=== PATIENT | male | born 1950 | race Caucasian/White ===

== ENCOUNTER 2017-03-01 16:47 | Emergency (ER) | payer OTHER ==
--- NOTE | 2017-03-01 18:51 | DIAGNOSTIC IMAGING REPORT ---
PROCEDURE: US VENOUS - LEFT EXT INDICATION: Left arm swelling. Status post abscess drainage of antecubital region. TECHNIQUE: Color Doppler duplex imaging of the deep and superficial venous system without and with compression. COMPARISON: None. FINDINGS: There is moderate to marked subcutaneous edema of the left arm. Deep and superficial venous system of the left upper extremity is within normal limits. There is no evidence of deep vein thrombosis or superficial thrombophlebitis. IMPRESSION: 1. Moderate to marked edema of the left arm. 2. Negative venous ultrasound of the left upper extremity. 3. Findings discussed with Dr. Garfield Mancini.
--- NOTE | 2017-03-01 18:54 | ED ORDER SUMMARY ---
..... Patient: VARUN URIBE OrderSheet [facility] VisitID: [id number] [place] [address] 66y, M Registration Date/Time: 03/01/2017 ORDER SHEET Weight: 81.6 kg (stated) Allergies: Methadone GENERAL ORDERS: US Venous Left Urgent (17:11 03/01/2017 Blaze Vee) (Ack 17:16 Laura) (18:16 KKnebel R.N.) CBC w Diff Urgent (17:11 03/01/2017 Blaze Vee) (Ack 17:16 Laura) (18:10 KKnebel R.N.) (Cancelled: Patient Msxcjuo24:10 AMBROSEneagueda R.N.) CMP Urgent (17:11 03/01/2017 Blaze Vee) (Ack 17:16 Laura) (18:10 Karl R.N.) CPK Urgent (17:11 03/01/2017 Blzae Vee) (Ack 17:16 Laura) (18:10 Karl R.N.) Pulse oximeter (17:11 03/01/2017 Blaze Vee) (18:11 KKnebel R.N.) MEDICATION ORDERS: Morphine IM 8 mg (HIGH ALERT MEDICATION, NOW) (18:11 03/01/2017Yun Thakur Dr.) (18:17 KKnebel R.N.) IV FLUIDS: IV Saline Lock (17:11 03/01/2017 Blaze Vee) (18:11 AMBROSEnebel R.N.) ORDER SHEET NOTES: [Electronically signed by Judi Smith R.N. (19:39 03/01/2017)] [Electronically signed by Garfield Mancini Dr. (12:24 03/03/2017)] [Electronically locked/signed by Judi Smith R.N. (19:39 03/01/2017)]
--- NOTE | 2017-03-01 18:54 | ED NURSING NOTES ---
Clinical Report - Nurses [facility] [address] [place] [address] 03/01/2017 16:47 Patient: VARUN URIBE TRIAGE Triage time 16:53 Mar 01 2017. Acuity: LEVEL 3. Chief Complaint: LEFT UPPER EXTREMITY PAIN, SWELLING and REDNESS. Alert. No acute distress. SEPSIS SCREEN: Sepsis Screen: negative. Infection suspected/documented. Temperature not greater than 38.3 degrees C (101 degrees F). Heart rate not greater than 90. Respiratory rate not greater than 20. LISA COMA SCORE: [place] Coma Scale: 15- eyes open spontaneously (4); best verbal response- oriented x 4 (5); best motor response- obeys commands (6). --17:04 Judi Smith R.N. 16:53 03/01/17. BP: 141/63. HR: 87. RR: 16. O2 saturation: 99%. Temp: 97.8 F. Pain level now: 07/09. --17:04 Judi Smith R.N. Weight: 81.6 kg stated. Height/Length: 71 inches Per Patient. BMI: 25.1. --16:56 Judi Smith R.N. Medications Bactrim. --19:25 Judi Smith R.N. Carbamazepine. --19:26 Judi Smith R.N. Keflex. --19:26 Judi Smith R.N. Triamcinolone Acetonide. --19:26 Judi Smith R.N. Methadone. --19:30 Judi Smith R.N. Gabapentin. --19:30 Judi Smith R.N. Allergies Methadone. --19:29 Judi Smith R.N. History Arrived by private vehicle. Historian: patient. No injury occurred. This occurred (about 2 weeks). He has had swelling to left hand, numbness and weakness. 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 PAST MEDICAL HX: Date of last tetanus shot cannot be recalled. SOCIAL HX: Current every day heavy tobacco smoker (cigarette)- less than 1 pack per day. No alcohol use or drug use. No infectious disease exposure. SELF HARM ASSESSMENT: A self harm assessment was performed. The patient answered "no" to the question "Do you have thoughts of harming or killing yourself?". FALL RISK ASSESSMENT: Fall risk assessment completed. No fall risk identified. NUTRITIONAL RISK ASSESSMENT: The nutritional risk assessment revealed no deficiencies. FUNCTIONAL ASSESSMENT: Functional assessment: no impairments noted. LEARNING NEEDS ASSESSMENT: The learning needs assessment revealed no barriers. ABUSE ASSESSMENT: Abuse assessment: The patient was asked "Do you feel safe in your home?". SKIN INTEGRITY ASSESSMENT: Skin integrity risk assessment completed. No skin integrity risk identified. --17:04 Judi Smith R.N. PROBLEMS: Peripheral Vascular Disease. Mrsa. Hepatitis. Arthritis. --19:32 Judi Smith R.N. ADDITIONAL SURGERIES: Ankle surgery. Appendectomy. Right leg surgery. Toe amputation. --19:32 Judi Smith R.N. Interventions ID band on patient. To room. --17:04 Judi Smith R.N. PHYSICAL ASSESSMENT Ambulatory to room. GENERAL / NEURO / PSYCH: Oriented X 4. Alert. Appears in no acute distress. Appears in pain. He has had weakness. He has had numbness. CVS: Capillary refill is greater than 2 seconds. EXTREMITIES: Erythema on the extremities. Upper extremity edema. Left forearm: tenderness, swelling and erythema of the mid and distal forearm. SKIN: Skin is warm and dry. --17:05 Judi Smith R.N. NURSING PROGRESS NOTES Patient gowned. Patient identifiers checked. Call light placed in reach. Side rails up x 1. Bed placed in lowest position. Brakes of bed on. --17:06 Judi Smith R.N. 18:01 03/01/2017 IV Saline Lock was refused by patient because of preference for a different route. Judi Smith --18:11 Judi Smith R.N. 18:02 03/01/2017 Morphine (Morphine Sulfate (PF)) IM 8 mg/kg given. Given in the right anterior lateral thigh. Allergies verified, confirmed 5 rights and sedative warning given to the patient. --18:17 Judi Smith R.N. DISPOSITION / DISCHARGE Departure time: 19:10 Mar 01 2017. Condition at departure: improved. No learning barriers present. Discharge instructions provided and reviewed with the patient. Reviewed medication(s) side effects, precautions, dosing and course information. Prescription(s) given to the patient. Reviewed referrals (return to ED tomorrow). Patient verbalized understanding. Written instructions provided in Solomon Islander. The patient was discharged home. He left the Emergency Department ambulatory and via private vehicle. Patient driving. FALL RISK ASSESSMENT: Fall risk assessment completed. No fall risk identified. --19:34 Judi Smith R.N. 19:32 03/01/17. BP: 121/73. HR: 88. RR: 16. O2 saturation: 97%. Pain level now: 05/09. --19:34 Judi Smith R.N. Locked/Released at 03/01/2017 19:39 by Judi Smith R.N.
--- NOTE | 2017-03-01 18:54 | ED NURSING NOTES ---
Clinical Report - Nurses [facility] [address] [place] [address] 03/01/2017 16:47 Patient: VARNU URIBE TRIAGE Triage time 16:53 Mar 01 2017. Acuity: LEVEL 3. Chief Complaint: LEFT UPPER EXTREMITY PAIN, SWELLING and REDNESS. Alert. No acute distress. SEPSIS SCREEN: Sepsis Screen: negative. Infection suspected/documented. Temperature not greater than 38.3 degrees C (101 degrees F). Heart rate not greater than 90. Respiratory rate not greater than 20. LISA COMA SCORE: [place] Coma Scale: 15- eyes open spontaneously (4); best verbal response- oriented x 4 (5); best motor response- obeys commands (6). --17:04 Judi Smith R.N. 16:53 03/01/17. BP: 141/63. HR: 87. RR: 16. O2 saturation: 99%. Temp: 97.8 F. Pain level now: 07/09. --17:04 Judi Smith R.N. Weight: 81.6 kg stated. Height/Length: 71 inches Per Patient. BMI: 25.1. --16:56 Judi Smith R.N. Medications Bactrim. --19:25 Judi Smith R.N. Carbamazepine. --19:26 Judi Smith R.N. Keflex. --19:26 Judi Smith R.N. Triamcinolone Acetonide. --19:26 Judi Smith R.N. Methadone. --19:30 Judi Smith R.N. Gabapentin. --19:30 Judi Smith R.N. Allergies Methadone. --19:29 Judi Smith R.N. History Arrived by private vehicle. Historian: patient. No injury occurred. This occurred (about 2 weeks). He has had swelling to left hand, numbness and weakness. 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 PAST MEDICAL HX: Date of last tetanus shot cannot be recalled. SOCIAL HX: Current every day heavy tobacco smoker (cigarette)- less than 1 pack per day. No alcohol use or drug use. No infectious disease exposure. SELF HARM ASSESSMENT: A self harm assessment was performed. The patient answered "no" to the question "Do you have thoughts of harming or killing yourself?". FALL RISK ASSESSMENT: Fall risk assessment completed. No fall risk identified. NUTRITIONAL RISK ASSESSMENT: The nutritional risk assessment revealed no deficiencies. FUNCTIONAL ASSESSMENT: Functional assessment: no impairments noted. LEARNING NEEDS ASSESSMENT: The learning needs assessment revealed no barriers. ABUSE ASSESSMENT: Abuse assessment: The patient was asked "Do you feel safe in your home?". SKIN INTEGRITY ASSESSMENT: Skin integrity risk assessment completed. No skin integrity risk identified. --17:04 Judi Smith R.N. PROBLEMS: Peripheral Vascular Disease. Mrsa. Hepatitis. Arthritis. --19:32 Judi Smith R.N. ADDITIONAL SURGERIES: Ankle surgery. Appendectomy. Right leg surgery. Toe amputation. --19:32 Judi Smith R.N. Interventions ID band on patient. To room. --17:04 Judi Smith R.N. PHYSICAL ASSESSMENT Ambulatory to room. GENERAL / NEURO / PSYCH: Oriented X 4. Alert. Appears in no acute distress. Appears in pain. He has had weakness. He has had numbness. CVS: Capillary refill is greater than 2 seconds. EXTREMITIES: Erythema on the extremities. Upper extremity edema. Left forearm: tenderness, swelling and erythema of the mid and distal forearm. SKIN: Skin is warm and dry. --17:05 Judi Smith R.N. NURSING PROGRESS NOTES Patient gowned. Patient identifiers checked. Call light placed in reach. Side rails up x 1. Bed placed in lowest position. Brakes of bed on. --17:06 Judi Smith R.N. 18:01 03/01/2017 IV Saline Lock was refused by patient because of preference for a different route. Judi Smith --18:11 Judi Smith R.N. 18:02 03/01/2017 Morphine (Morphine Sulfate (PF)) IM 8 mg/kg given. Given in the right anterior lateral thigh. Allergies verified, confirmed 5 rights and sedative warning given to the patient. --18:17 Judi Smith R.N. DISPOSITION / DISCHARGE Departure time: 19:10 Mar 01 2017. Condition at departure: improved. No learning barriers present. Discharge instructions provided and reviewed with the patient. Reviewed medication(s) side effects, precautions, dosing and course information. Prescription(s) given to the patient. Reviewed referrals (return to ED tomorrow). Patient verbalized understanding. Written instructions provided in Malian. The patient was discharged home. He left the Emergency Department ambulatory and via private vehicle. Patient driving. FALL RISK ASSESSMENT: Fall risk assessment completed. No fall risk identified. --19:34 Judi Smith R.N. 19:32 03/01/17. BP: 121/73. HR: 88. RR: 16. O2 saturation: 97%. Pain level now: 05/09. --19:34 Judi Smith R.N. Locked/Released at 03/01/2017 19:39 by Judi Smith R.N.
--- NOTE | 2017-03-01 18:54 | ED ORDER SUMMARY ---
..... Patient: VARUN URIBE OrderSheet [facility] VisitID: [id number] [place] [address] 66y, M Registration Date/Time: 03/01/2017 ORDER SHEET Weight: 81.6 kg (stated) Allergies: Methadone GENERAL ORDERS: US Venous Left Urgent (17:11 03/01/2017 Blaze Vee) (Ack 17:16 Laura) (18:16 KKnebel R.N.) CBC w Diff Urgent (17:11 03/01/2017 Blaze Vee) (Ack 17:16 Laura) (18:10 KKnebel R.N.) (Cancelled: Patient Ddmcgdm47:10 AMBROSEneagueda R.N.) CMP Urgent (17:11 03/01/2017 Blaze Vee) (Ack 17:16 Laura) (18:10 Karl R.N.) CPK Urgent (17:11 03/01/2017 Blaze Vee) (Ack 17:16 Laura) (18:10 Karl R.N.) Pulse oximeter (17:11 03/01/2017 Blaze Vee) (18:11 KKnebel R.N.) MEDICATION ORDERS: Morphine IM 8 mg (HIGH ALERT MEDICATION, NOW) (18:11 03/01/2017Yun Thakur Dr.) (18:17 KKnebel R.N.) IV FLUIDS: IV Saline Lock (17:11 03/01/2017 Blaze Vee) (18:11 AMBROSEnebel R.N.) ORDER SHEET NOTES: [Electronically signed by Judi Smith R.N. (19:39 03/01/2017)] [Electronically signed by Garfield Mancini Dr. (12:24 03/03/2017)] [Electronically locked/signed by Judi Smith R.N. (19:39 03/01/2017)]
--- NOTE | 2017-03-01 18:54 | ED CLINICAL REPORT ---
Clinical Report - Physicians/Mid Levels [facility] [address] [place] [address] 03/01/2017 16:47 Patient: VARUN URIBE Time Seen: 1701. Arrived- By private vehicle. Historian- patient. HISTORY OF PRESENT ILLNESS Chief Complaint: BOIL. This started past few weeks and is still present. It has been constant but is not gone now. It is described as painful. It has been located on the left upper extremity (AC). No cause has been identified. (states he tried to get it changed and Prov. Reports it did not get drained and got worse. Left the wound open but it has not drained spontaneously.). Similar symptoms previously: None. Recent medical care: The patient was seen recently in the emergency department. REVIEW OF SYSTEMS No fever, difficulty breathing, chest pain, nausea or vomiting. All systems otherwise negative, except as recorded above. PAST HISTORY See nurses notes. Tetanus immunization status is up-to-date. SOCIAL HISTORY Smoker- current status unknown. No alcohol use or drug use. No recent travel. Is a local resident. ADDITIONAL NOTES The nursing notes have been reviewed. PHYSICAL EXAM Vital Signs: 03/01/2017 16:53 BP: 141/63. HR: 87. RR: 16. O2 saturation: 99%. Temp: 97.8 F. Pain level now: 10/10. Blood pressure normal. Oxygen saturation normal. Appearance: Alert. Oriented X3. No acute distress. (pleasant. cooperative. polite.). Eyes: Pupils equal, round and reactive to light. Conjunctivae and eyelids normal. ENT: Ears normal. Nose normal. Pharynx normal. Neck: Neck supple. No lymphadenopathy or meningeal signs. CVS: Normal heart rate and rhythm. Heart sounds normal. Respiratory: No respiratory distress. Breath sounds normal. Chest nontender. Abdomen: Nontender. No organomegaly. Skin: Large area of cellulitis with tenderness, erythema and warmth to left forearm. Single large abscess with fluctuance to left forearm. Extremities: Normal external inspection. Extremities nontender. Neuro: Oriented X 3. No motor deficit. No sensory deficit. PROGRESS AND PROCEDURES Incision & Drainage of Abscess: The abscess is located (left upper arm in the AC fossa). The risks of the procedure, benefits and alternatives were explained. Parenteral Morphine administered. Anesthesia provided using 1% lidocaine with epi. Skin cleansed with Betadine. Ultrasound utilized to confirm presence and determine location of abscess. The abscess was incised with a #15 surgical blade. A large amount of pus was drained. Cavity was irrigated with saline and packed with gauze. A dressing was applied. Estimated blood loss: 20 mL. ( Patient tolerated procedure well. No complications.). Course of Care: the patient is a pleasant 66-year-old male with no pertinent past medical history presenting for nausea and left-sided arm abscess. On examination, there is a large area of cellulitis. There is also a large abscess located in the left before meals. Laboratory studies have been ordered for evaluation of any metabolic disturbancesbecause of the large area of abscess and cellulitis. Informed written consent obtained for bedside abscess I&D because patientwas not agreeable to being admitted to the hospital. Laboratory studies had been subsequent be canceled afterwards. Patient understands that we are only here to help him and would like the wound to have the best chance of healing. Patient states that he will follow upevery day if he needs to however cannot afford the adult to be admitted to the hospital. Bedside incision and drainage was completed successfully in the emergency department. The patient had a large amount ofpus draining from the wound. Again had encouraged patient to be admitted to the hospital for wound care management as well as IV antibiotics over patient currently declines. An tabetic provided here in the emergency department. Patient is able to make his own medical decisions. Patient cites financial reasons for not being admitted to the hospital. Had offered resources for financial assistance and speaking to the financial advisors here in the hospital. Patient still declines. Patient states that he'll be getting a large Social Security check in the next few weeks. Patient is otherwise she cannot forted at this time. Patient is able to make decisions for himself. Do not fill enforce the patient to stay in hospital and undergo invasive medical testing and treatment if he does not wish to do so. Patient understands that he is welcome to return to the hospital forfurther treatment or if he changes his mind and no gradual be held against him. Patient again understands that I only want what is best for his arm. Patient's vital signs are in the emergency department are noted to be unremarkable. discussed with patient his workup here in the emergency department including diagnosis, home care, follow-up, and return precautions. All questions have been answered. The patient expressed understanding of these instructions and was agreeable to them. Patient was evaluated prior to departure from the emergency department. Patient is Ambulatory without assistance. Patient continues to be nontoxic and in no acute distress. Disposition: Discharged. Condition: good. CLINICAL IMPRESSION Cellulitis of the left forearm. No foreign body present. Deep abscess to the left upper extremity with incision and drainage. INSTRUCTIONS (continue taking your antibiotics). Warnings: GENERAL WARNINGS: Return or contact your physician immediately if your condition worsens or changes unexpectedly, if not improving as expected, or if other problems arise. Specifically return if pain, vomiting, bleeding, breathing difficulty or fever. numbness, tingling, weakness, worsening swelling, or other concerns. Prescription Medications: Percocet 5 mg/325 mg: take 1 tablet orally every 6 hours as needed for pain. Dispense twenty (20). No refill. Substitution is permissible. Follow-up: Return to the emergency department tomorrow. Follow up with your doctor in two days. Reason for referral: recheck today's concerns. Summary of care provided to patient via paper. Follow up with doctor. Screening today revealed the patient's blood pressure to be in the normal range. Understanding of the discharge instructions verbalized by patient. Follow-up with: [facility], , , [facility], [address], [place] [phone] Follow up in three. Reason for referral: recheck today's concerns. Summary of care provided to patient via paper. (Electronically signed by Garfield Mancini Dr. 03/03/2017 12:24)
--- NOTE | 2017-03-03 12:24 | ED DISCHARGE INSTRUCTIONS ---
Patient: VARUN URIBE General Instructions [facility] VisitID: [id number] [place] [address] 66y, M Registration Date/Time: 03/01/2017 Cellulitis of the left forearm. No foreign body present. Deep abscess to the left upper extremity with incision and drainage. INSTRUCTIONS (continue taking your antibiotics). Warnings: GENERAL WARNINGS: Return or contact your physician immediately if your condition worsens or changes unexpectedly, if not improving as expected, or if other problems arise. Specifically return if pain, vomiting, bleeding, breathing difficulty or fever. numbness, tingling, weakness, worsening swelling, or other concerns. Prescription Medications: Percocet 5 mg/325 mg: take 1 tablet orally every 6 hours as needed for pain. Dispense twenty (20). No refill. Substitution is permissible. Follow-up: Return to the emergency department tomorrow. Follow up with your doctor in two days. Reason for referral: recheck today's concerns. Summary of care provided to patient via paper. Follow up with doctor. Screening today revealed the patient's blood pressure to be in the normal range. Understanding of the discharge instructions verbalized by patient. Follow-up with: [facility], , , [facility], [address] [place] [address] [address], [place], [address] Follow up in three. Reason for referral: recheck today's concerns. Summary of care provided to patient via paper. ADDITIONAL INFORMATION Cellulitis You have an infection of the skin known as cellulitis. This usually starts with a scrape, cut, insect bite, blister or other opening in the skin which becomes infected. This is a serious condition. It must be watched closely to be sure the infection is not spreading. With antibiotic treatment, the size of the red area will gradually shrink in size until the skin returns to normal. This will take 7-10 days. The red area should never increase in size once the antibiotic medicine has been started. Occasionally, an infection will be resistant to one antibiotic and another one will have to be used. Home Care: 1) Limit the use of the affected part, since excess movement can cause the infection to spread. 2) If the infection is on your leg, walk as little as possible during the first few days of the treatment. Keep your leg elevated while sitting. This will reduce swelling. 3) Take all of the antibiotic medicine exactly as directed until it is gone. Be careful not to miss any doses, especially during the first seven days. Follow Up with your doctor or this facility as directed. Check the infected area daily for the warning signs listed below. Get Prompt Medical Attention if any of the following occur: -- Spreading area of redness -- Increasing swelling or pain -- Appearance of pus or drainage -- Fever over 100.4 F (38.0 C) oral, or over 101.4 F (38.6 C) rectal, after two days on antibiotics Abscess [Incision & Drainage] An abscess (sometimes called a boil) occurs when bacteria get trapped under the skin and begin to grow. Pus forms inside the abscess as the body responds to the bacteria. An abscess can occur with an insect bite, ingrown hair, blocked oil gland, pimple, cyst, or puncture wound. Treatment of your abscess has required an incision to drain the pus. If the abscess pocket was large, a gauze packing may have been inserted. This will need to be removed and possibly replaced on your next visit. Antibiotics are not required in the treatment of a simple abscess, unless the infection is spreading into the skin around the wound (known as cellulitis). Healing of the wound will take about one to two weeks depending on the size of the abscess. Healthy tissue will grow from the bottom and sides of the opening until it seals over. Home Care: The wound may drain for the first two days. Cover the wound with a clean dry dressing. If the dressing becomes soaked with blood or pus, change it. If a gauze packing was placed inside the abscess cavity, you may be advised to remove it yourself. You may do this in the shower. Once the packing is removed, you should wash the area in the shower or bath 3 to 4 times a day, until the skin opening has closed. If you were prescribed antibiotics, take them as directed until they are all gone. You may use acetaminophen (Tylenol) or ibuprofen (Motrin, Advil) to control pain, unless another pain medicine was prescribed. [ NOTE: If you have liver disease or ever had a stomach ulcer, talk with your doctor before using these medicines.] Follow Up with your doctor as advised by our staff. If a gauze packing was inserted in your wound, it should be removed in 1-2 days. Check your wound every day for the signs of worsening infection listed below. Get Prompt Medical Attention if any of the following occur: Increasing redness or swelling Red streaks in the skin leading away from the wound Increasing local pain or swelling Continued pus draining from the wound two days after treatment Fever of 100.4F (38C) or higher, or as directed by your healthcare provider Oxycodone Hydrochloride, Acetaminophen Oral tablet What is this medicine? ACETAMINOPHEN; OXYCODONE (a set a MADI brandie fen; ox i KOE done) is a pain reliever. It is used to treat mild to moderate pain. How should I use this medicine? Take this medicine by mouth with a full glass of water. Follow the directions on the prescription label. Take your medicine at regular intervals. Do not take your medicine more often than directed. Talk to your hydraulic boom operator regarding the use of this medicine in children. Special care may be needed. Patients over 65 years old may have a stronger reaction and need a smaller dose. What side effects may I notice from receiving this medicine? Side effects that you should report to your doctor or health skin care therapist as soon as possible: allergic reactions like skin rash, itching or hives, swelling of the face, lips, or tongue breathing difficulties, wheezing confusion light headedness or fainting spells severe stomach pain yellowing of the skin or the whites of the eyes Side effects that usually do not require medical attention (report to your doctor or health skin care therapist if they continue or are bothersome): dizziness drowsiness nausea vomiting What may interact with this medicine? alcohol antihistamines barbiturates like amobarbital, butalbital, butabarbital, methohexital, pentobarbital, phenobarbital, thiopental, and secobarbital benztropine drugs for bladder problems like solifenacin, trospium, oxybutynin, tolterodine, hyoscyamine, and methscopolamine drugs for breathing problems like ipratropium and tiotropium drugs for certain stomach or intestine problems like propantheline, homatropine methylbromide, glycopyrrolate, atropine, belladonna, and dicyclomine general anesthetics like etomidate, ketamine, nitrous oxide, propofol, desflurane, enflurane, halothane, isoflurane, and sevoflurane medicines for depression, anxiety, or psychotic disturbances medicines for sleep muscle relaxants naltrexone narcotic medicines (opiates) for pain phenothiazines like perphenazine, thioridazine, chlorpromazine, mesoridazine, fluphenazine, prochlorperazine, promazine, and trifluoperazine scopolamine tramadol trihexyphenidyl What if I miss a dose? If you miss a dose, take it as soon as you can. If it is almost time for your next dose, take only that dose. Do not take double or extra doses. Where should I keep my medicine? Keep out of the reach of children. This medicine can be abused. Keep your medicine in a safe place to protect it from theft. Do not share this medicine with anyone. Selling or giving away this medicine is dangerous and against the law. Store at room temperature between 20 and 25 degrees C (68 and 77 degrees F). Keep container tightly closed. Protect from light. This medicine may cause accidental overdose and if it is taken by other adults, children, or pets. Flush any unused medicine down the toilet to reduce the chance of harm. Do not use the medicine after the expiration date. What should I tell my health care provider before I take this medicine? They need to know if you have any of these conditions: brain tumor Crohn's disease, inflammatory bowel disease, or ulcerative colitis drink more than 3 alcohol containing drinks per day drug abuse or addiction head injury heart or circulation problems kidney disease or problems going to the bathroom liver disease lung disease, asthma, or breathing problems an unusual or allergic reaction to acetaminophen, oxycodone, other opioid analgesics, other medicines, foods, dyes, or preservatives or trying to get breast-feeding What should I watch for while using this medicine? Tell your doctor or health skin care therapist if your pain does not go away, if it gets worse, or if you have new or a different type of pain. You may develop tolerance to the medicine. Tolerance means that you will need a higher dose of the medication for pain relief. Tolerance is normal and is expected if you take this medicine for a long time. Do not suddenly stop taking your medicine because you may develop a severe reaction. Your body becomes used to the medicine. This does NOT mean you are addicted. Addiction is a behavior related to getting and using a drug for a non-medical reason. If you have pain, you have a medical reason to take pain medicine. Your doctor will tell you how much medicine to take. If your doctor wants you to stop the medicine, the dose will be slowly lowered over time to avoid any side effects. You may get drowsy or dizzy. Do not drive, use machinery, or do anything that needs mental alertness until you know how this medicine affects you. Do not stand or sit up quickly, especially if you are an older patient. This reduces the risk of dizzy or fainting spells. Alcohol may interfere with the effect of this medicine. Avoid alcoholic drinks. There are different types of narcotic medicines (opiates) for pain. If you take more than one type at the same time, you may have more side effects. Give your health care provider a list of all medicines you use. Your doctor will tell you how much medicine to take. Do not take more medicine than directed. Call emergency for help if you have problems breathing. The medicine will cause constipation. Try to have a bowel movement at least every 2 to 3 days. If you do not have a bowel movement for 3 days, call your doctor or health skin care therapist. Do not take Tylenol (acetaminophen) or medicines that have acetaminophen with this medicine. Too much acetaminophen can be very dangerous. Many nonprescription medicines contain acetaminophen. Always read the labels carefully to avoid taking more acetaminophen. You have been given the following additional information: Cellulitis Abscess, Incision And Drainage Oxycodone Hydrochloride, Acetaminophen Oral tablet (Electronically signed by Garfield Mancini Dr. 03/03/2017 12:24)
--- NOTE | 2017-03-03 12:24 | ED MAR SUMMARY ---
..... Medication Administration Record [facility] [address] [place] [address] Patient: VARUN URIBE Visit ID: [id number] 66y, M Weight: 81.6 kg Height/Length: 71 in BMI: 25.1 ALLERGIES: Methadone Given 18:02 03/01/2017 Judi Smith R.N. Medication Administered: MORPHINE [IM] (MORPHINE SULFATE (PF)), Dose: 8 mg/kg IM. Medication Ordered: Morphine IM 8 mg (HIGH ALERT MEDICATION, NOW).
--- NOTE | 2017-03-03 12:24 | ED MED RECONCILIATION SUMMARY ---
Patient: VARUN URIBE Medication Reconciliation Report [facility] VisitID: [id number] [place] [address] 66y, M Registration Date/Time: 03/01/2017 Weight: 81.6 kg Height/Length: 71 in. BMI: 25.1 ALLERGIES: Methadone The patient's Home Medications are listed below: THE FOLLOWING MEDICATIONS NEED TO BE RECONCILED: Bactrim Carbamazepine Gabapentin Keflex Methadone Triamcinolone Acetonide The source(s) of the original Home Medication information: Not obtained. The following Medications were given to the patient in the Emergency Department: Morphine [IM] IM 8 mg/kg, administered: 03/01/2017 6:02:00 PM The following Medications were prescribed to the patient: Percocet 5 mg/325 mg: take 1 tablet orally every 6 hours as needed for pain. Dispense twenty (20). No refill. Substitution is permissible. -- Garfield Mancini Dr.
--- NOTE | 2017-03-03 12:24 | ED DISCHARGE INSTRUCTIONS ---
Patient: VARUN URIBE General Instructions [facility] VisitID: [id number] [place] [address] 66y, M Registration Date/Time: 03/01/2017 Cellulitis of the left forearm. No foreign body present. Deep abscess to the left upper extremity with incision and drainage. INSTRUCTIONS (continue taking your antibiotics). Warnings: GENERAL WARNINGS: Return or contact your physician immediately if your condition worsens or changes unexpectedly, if not improving as expected, or if other problems arise. Specifically return if pain, vomiting, bleeding, breathing difficulty or fever. numbness, tingling, weakness, worsening swelling, or other concerns. Prescription Medications: Percocet 5 mg/325 mg: take 1 tablet orally every 6 hours as needed for pain. Dispense twenty (20). No refill. Substitution is permissible. Follow-up: Return to the emergency department tomorrow. Follow up with your doctor in two days. Reason for referral: recheck today's concerns. Summary of care provided to patient via paper. Follow up with doctor. Screening today revealed the patient's blood pressure to be in the normal range. Understanding of the discharge instructions verbalized by patient. Follow-up with: [facility], , , [facility], [address] [place] [address] [address], [place], [address] Follow up in three. Reason for referral: recheck today's concerns. Summary of care provided to patient via paper. ADDITIONAL INFORMATION Cellulitis You have an infection of the skin known as cellulitis. This usually starts with a scrape, cut, insect bite, blister or other opening in the skin which becomes infected. This is a serious condition. It must be watched closely to be sure the infection is not spreading. With antibiotic treatment, the size of the red area will gradually shrink in size until the skin returns to normal. This will take 7-10 days. The red area should never increase in size once the antibiotic medicine has been started. Occasionally, an infection will be resistant to one antibiotic and another one will have to be used. Home Care: 1) Limit the use of the affected part, since excess movement can cause the infection to spread. 2) If the infection is on your leg, walk as little as possible during the first few days of the treatment. Keep your leg elevated while sitting. This will reduce swelling. 3) Take all of the antibiotic medicine exactly as directed until it is gone. Be careful not to miss any doses, especially during the first seven days. Follow Up with your doctor or this facility as directed. Check the infected area daily for the warning signs listed below. Get Prompt Medical Attention if any of the following occur: -- Spreading area of redness -- Increasing swelling or pain -- Appearance of pus or drainage -- Fever over 100.4 F (38.0 C) oral, or over 101.4 F (38.6 C) rectal, after two days on antibiotics Abscess [Incision & Drainage] An abscess (sometimes called a boil) occurs when bacteria get trapped under the skin and begin to grow. Pus forms inside the abscess as the body responds to the bacteria. An abscess can occur with an insect bite, ingrown hair, blocked oil gland, pimple, cyst, or puncture wound. Treatment of your abscess has required an incision to drain the pus. If the abscess pocket was large, a gauze packing may have been inserted. This will need to be removed and possibly replaced on your next visit. Antibiotics are not required in the treatment of a simple abscess, unless the infection is spreading into the skin around the wound (known as cellulitis). Healing of the wound will take about one to two weeks depending on the size of the abscess. Healthy tissue will grow from the bottom and sides of the opening until it seals over. Home Care: The wound may drain for the first two days. Cover the wound with a clean dry dressing. If the dressing becomes soaked with blood or pus, change it. If a gauze packing was placed inside the abscess cavity, you may be advised to remove it yourself. You may do this in the shower. Once the packing is removed, you should wash the area in the shower or bath 3 to 4 times a day, until the skin opening has closed. If you were prescribed antibiotics, take them as directed until they are all gone. You may use acetaminophen (Tylenol) or ibuprofen (Motrin, Advil) to control pain, unless another pain medicine was prescribed. [ NOTE: If you have liver disease or ever had a stomach ulcer, talk with your doctor before using these medicines.] Follow Up with your doctor as advised by our staff. If a gauze packing was inserted in your wound, it should be removed in 1-2 days. Check your wound every day for the signs of worsening infection listed below. Get Prompt Medical Attention if any of the following occur: Increasing redness or swelling Red streaks in the skin leading away from the wound Increasing local pain or swelling Continued pus draining from the wound two days after treatment Fever of 100.4F (38C) or higher, or as directed by your healthcare provider Oxycodone Hydrochloride, Acetaminophen Oral tablet What is this medicine? ACETAMINOPHEN; OXYCODONE (a set a MADI brandie fen; ox i KOE done) is a pain reliever. It is used to treat mild to moderate pain. How should I use this medicine? Take this medicine by mouth with a full glass of water. Follow the directions on the prescription label. Take your medicine at regular intervals. Do not take your medicine more often than directed. Talk to your copy center operator regarding the use of this medicine in children. Special care may be needed. Patients over 65 years old may have a stronger reaction and need a smaller dose. What side effects may I notice from receiving this medicine? Side effects that you should report to your doctor or health hospice care transitions coordinator as soon as possible: allergic reactions like skin rash, itching or hives, swelling of the face, lips, or tongue breathing difficulties, wheezing confusion light headedness or fainting spells severe stomach pain yellowing of the skin or the whites of the eyes Side effects that usually do not require medical attention (report to your doctor or health hospice care transitions coordinator if they continue or are bothersome): dizziness drowsiness nausea vomiting What may interact with this medicine? alcohol antihistamines barbiturates like amobarbital, butalbital, butabarbital, methohexital, pentobarbital, phenobarbital, thiopental, and secobarbital benztropine drugs for bladder problems like solifenacin, trospium, oxybutynin, tolterodine, hyoscyamine, and methscopolamine drugs for breathing problems like ipratropium and tiotropium drugs for certain stomach or intestine problems like propantheline, homatropine methylbromide, glycopyrrolate, atropine, belladonna, and dicyclomine general anesthetics like etomidate, ketamine, nitrous oxide, propofol, desflurane, enflurane, halothane, isoflurane, and sevoflurane medicines for depression, anxiety, or psychotic disturbances medicines for sleep muscle relaxants naltrexone narcotic medicines (opiates) for pain phenothiazines like perphenazine, thioridazine, chlorpromazine, mesoridazine, fluphenazine, prochlorperazine, promazine, and trifluoperazine scopolamine tramadol trihexyphenidyl What if I miss a dose? If you miss a dose, take it as soon as you can. If it is almost time for your next dose, take only that dose. Do not take double or extra doses. Where should I keep my medicine? Keep out of the reach of children. This medicine can be abused. Keep your medicine in a safe place to protect it from theft. Do not share this medicine with anyone. Selling or giving away this medicine is dangerous and against the law. Store at room temperature between 20 and 25 degrees C (68 and 77 degrees F). Keep container tightly closed. Protect from light. This medicine may cause accidental overdose and if it is taken by other adults, children, or pets. Flush any unused medicine down the toilet to reduce the chance of harm. Do not use the medicine after the expiration date. What should I tell my health care provider before I take this medicine? They need to know if you have any of these conditions: brain tumor Crohn's disease, inflammatory bowel disease, or ulcerative colitis drink more than 3 alcohol containing drinks per day drug abuse or addiction head injury heart or circulation problems kidney disease or problems going to the bathroom liver disease lung disease, asthma, or breathing problems an unusual or allergic reaction to acetaminophen, oxycodone, other opioid analgesics, other medicines, foods, dyes, or preservatives or trying to get breast-feeding What should I watch for while using this medicine? Tell your doctor or health hospice care transitions coordinator if your pain does not go away, if it gets worse, or if you have new or a different type of pain. You may develop tolerance to the medicine. Tolerance means that you will need a higher dose of the medication for pain relief. Tolerance is normal and is expected if you take this medicine for a long time. Do not suddenly stop taking your medicine because you may develop a severe reaction. Your body becomes used to the medicine. This does NOT mean you are addicted. Addiction is a behavior related to getting and using a drug for a non-medical reason. If you have pain, you have a medical reason to take pain medicine. Your doctor will tell you how much medicine to take. If your doctor wants you to stop the medicine, the dose will be slowly lowered over time to avoid any side effects. You may get drowsy or dizzy. Do not drive, use machinery, or do anything that needs mental alertness until you know how this medicine affects you. Do not stand or sit up quickly, especially if you are an older patient. This reduces the risk of dizzy or fainting spells. Alcohol may interfere with the effect of this medicine. Avoid alcoholic drinks. There are different types of narcotic medicines (opiates) for pain. If you take more than one type at the same time, you may have more side effects. Give your health care provider a list of all medicines you use. Your doctor will tell you how much medicine to take. Do not take more medicine than directed. Call emergency for help if you have problems breathing. The medicine will cause constipation. Try to have a bowel movement at least every 2 to 3 days. If you do not have a bowel movement for 3 days, call your doctor or health hospice care transitions coordinator. Do not take Tylenol (acetaminophen) or medicines that have acetaminophen with this medicine. Too much acetaminophen can be very dangerous. Many nonprescription medicines contain acetaminophen. Always read the labels carefully to avoid taking more acetaminophen. You have been given the following additional information: Cellulitis Abscess, Incision And Drainage Oxycodone Hydrochloride, Acetaminophen Oral tablet (Electronically signed by Garfield Mancini Dr. 03/03/2017 12:24)
--- NOTE | 2017-03-03 12:24 | ED MAR SUMMARY ---
..... Medication Administration Record [facility] [address] [place] [address] Patient: VARUN URIBE Visit ID: [id number] 66y, M Weight: 81.6 kg Height/Length: 71 in BMI: 25.1 ALLERGIES: Methadone Given 18:02 03/01/2017 Judi Smith R.N. Medication Administered: MORPHINE [IM] (MORPHINE SULFATE (PF)), Dose: 8 mg/kg IM. Medication Ordered: Morphine IM 8 mg (HIGH ALERT MEDICATION, NOW).
--- NOTE | 2017-03-03 12:24 | ED MED RECONCILIATION SUMMARY ---
Patient: VARUN URIBE Medication Reconciliation Report [facility] VisitID: [id number] [place] [address] 66y, M Registration Date/Time: 03/01/2017 Weight: 81.6 kg Height/Length: 71 in. BMI: 25.1 ALLERGIES: Methadone The patient's Home Medications are listed below: THE FOLLOWING MEDICATIONS NEED TO BE RECONCILED: Bactrim Carbamazepine Gabapentin Keflex Methadone Triamcinolone Acetonide The source(s) of the original Home Medication information: Not obtained. The following Medications were given to the patient in the Emergency Department: Morphine [IM] IM 8 mg/kg, administered: 03/01/2017 6:02:00 PM The following Medications were prescribed to the patient: Percocet 5 mg/325 mg: take 1 tablet orally every 6 hours as needed for pain. Dispense twenty (20). No refill. Substitution is permissible. -- Garfield Mancini Dr.
== END 2017-03-01 19:10 | disposition home or self-care (01) ==
LOC: ED SRH 16:47
DX: L02.414 Cutaneous abscess of left upper limb (principal); L03.114 Cellulitis of left upper limb

== ENCOUNTER 2017-03-21 13:01 | Emergency (ER) | payer OTHER ==
--- NOTE | 2017-03-21 17:20 | ED NURSING NOTES ---
Clinical Report - Nurses [facility] [place] [address] 03/21/2017 13:03 Patient: VARUN URIBE TRIAGE Triage time 13:Mar 21 2017. Acuity: LEVEL 4. Chief Complaint: RECHECK OF WOUND. 13:17 03/21/17. Alert. No acute distress. SEPSIS SCREEN: Sepsis Screen. Negative (no infection suspected/documented). CHELSI COMA SCORE: Chelsi Coma Scale: 15- eyes open spontaneously (4); best verbal response- oriented x 4 (5); best motor response- obeys commands (6). --13:17 Qi Marin 13:17 03/21/17. BP: 125/64. HR: 80. RR: 17. O2 saturation: 96%. Temp: 98.2 F. Pain level now 6/10. --13:17 Qi Marin Acuity: LEVEL 5. 13:20 03/21/17. --13:20 Qi Marin. Weight: 81.6 kg stated. Height/Length: 71 inches Per Patient. BMI: 25.1. --13:16 Qi Marin. Medications Bactrim. Carbamazepine. Gabapentin. Keflex. Methadone. Triamcinolone Acetonide. --13:13 Qi Marin. Medication/allergy information source: the patient. --13:17 Qi Marin. Allergies None. --13:13 Qi Marin. History Arrived by private vehicle. Historian: patient. Unaccompanied. Primary physician (Figueroa). The patient has had redness, swelling and drainage from wound and has experienced pain. No fever. Previous treatment: Previously seen in this ED (on the ). PO antibiotic given in ED (Bactrim, Keflex). ( Pt was here for abscess that was drained in this facility on the . Pt states that it is continuing to drain and still has pain, but that the pain is not worse. 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 PAST MEDICAL HX: No history of diabetes mellitus, hypertension, heart disease or lung disease. Tetanus status: more than 5 years ago. SOCIAL HX: Light tobacco smoker (cigarette)- less than 1/2 a pack per day. No alcohol use or drug use. FALL RISK ASSESSMENT: Fall risk assessment completed. No fall risk identified. NUTRITIONAL RISK ASSESSMENT: The nutritional risk assessment revealed no deficiencies. FUNCTIONAL ASSESSMENT: Functional assessment: no impairments noted. LEARNING NEEDS ASSESSMENT: The learning needs assessment revealed no barriers. SKIN INTEGRITY ASSESSMENT: Skin integrity risk assessment completed. No skin integrity risk identified. --13:17 Qi Marin. PROBLEMS: Peripheral Vascular Disease. Mrsa. Arthritis. Cellulitis. Healing Abscess. Abscess. --13:13 Qi Marin. ADDITIONAL SURGERIES: Ankle surgery. Appendectomy. Right leg surgery. Toe amputation. --13:13 Qi Marin. Assessment The patient states feels the same. --13:17 Qi Marin. Interventions ID band on patient. --13:17 Qi Marin. PHYSICAL ASSESSMENT 13:03/21/17. Ambulatory to room. GENERAL / NEURO / PSYCH: Alert. Oriented X 4. Appears in no acute distress. EXTREMITIES: Extremity pulses are within normal limits. Capillary refill is less than 2 seconds in the extremities. Sensation intact in extremities. ROM of extremities within normal limits. SKIN: Warmth. Skin is warm and dry. Purulent drainage. Tenderness. Swelling. Erythema. --13:19 Qi Marin. NURSING PROGRESS NOTES 13:03/21/17. The plan of care for this patient has been created. Extremity elevated. Reassurance given. Two patient identifiers checked. Call light placed in reach. Side rails up x 1. Bed placed in lowest position. Brakes of bed on. Patient ready for evaluation- chart flagged and ED physician and AIRCRAFT ELECTRICAL SYSTEMS SPECIALIST notified. --13:19 Qi Marin 14:30 03/21/2017 Two (2) unsuccessful IV access attempts including the right upper arm and antecubital space. Applied pressure dressing. --14:40 Qi Marin 14:51 03/21/2017 Site #1 started via IV in the right hand with an 22g angiocath; one attempt. Saline lock flushed with 10 mL saline. --14:51 Hannah Riggs R.N. 15:03 03/21/2017 Started 2 gm of Vancomycin IVPB in bag #1 200 mL; at 200 mL/hr over 1 hour(s) via site #1 via IV pump. Allergies verified and confirmed 5 rights. IV patency established. IV site checked: no pain, redness, or swelling. IV flushed thoroughly pre- and post-medication administration (IV rate confirmed with IV pump library.). --15:03 Qi Marin 15:03/21/17. BP: 121/73. HR: 73. RR: 16. O2 saturation: 94%. Pain level now 0/10. --15:03 Qi Marin 15:07 03/21/2017 TDAP IM 0.5 mL given. (Lot#: [id number], expiration date: 02/07/2019, Tube Drawer: [employer] pasteur). Given in the right deltoid. Allergies verified and confirmed 5 rights. Vaccine information statement provided to the patient. --15:07 Qi Marin 16:11 03/21/17. BP: 113/69. HR: 73. RR: 14. O2 saturation: 94%. Pain level now 5/10. --16:11 Qi Marin 17:03/21/17. BP: 109/77. HR: 72. RR: 16. O2 saturation: 96%. Temp: 98.3 F. Pain level now 6/10. --17:07 Qi Marin 16:15 03/21/17. Applied clean bulky dressing consisting of 4x4 gauze. Secured with kerlix. --18:37 Qi Marin 16:19 03/21/2017 Ibuprofen PO Tablets 800 mg given. Allergies verified and confirmed 5 rights. --16:19 Qi Marin 17:03/21/2017 Vancomycin IVPB Discontinued: bag #1 infused. Total amount infused: 400 mL. IV patency established. IV site checked: no pain, redness, or swelling. IV flushed thoroughly. --18:45 Qi Marin 17:25 03/21/2017 IV Saline Lock Drip IV Discontinued. Total amount infused: 0 mL. --18:45 Qi Marin 17:29 03/21/2017 Site #1 removed upon discharge. Catheter intact. Pressure dressing applied. --18:45 Qi Marin. DISPOSITION / DISCHARGE Departure time: Mar 21 2017. Condition at departure: improved. The goals identified in the patient's plan of care were met. No learning barriers present. Discharge instructions provided and reviewed with the patient. Reviewed warnings (Patient verbalized understanding of the importance of taking entire course of antibiotics. Patient verbalized awareness of warning s/sx listed in dc paperwork.). Reviewed medication(s) side effects, precautions, dosing and course information. Prescription(s) given to the patient (Bactrim). Treatments reviewed. Reviewed referral to a primary care physician for followup. Patient verbalized understanding. Written instructions provided in Czech. The patient was discharged by the physician. He was discharged home and accompanied by family. He left the Emergency Department ambulatory and via private vehicle. Family member driving. FALL RISK ASSESSMENT: Fall risk assessment completed. No fall risk identified. --18:45 Qi Marin 17:29 03/21/17. BP: deferred. HR: deferred. RR: deferred. O2 saturation: deferred. Temp: deferred. Pain level now deferred. --18:45 Qi Marin. Locked/Released at 03/21/2017 18:46 by Qi Marin,
--- NOTE | 2017-03-21 17:20 | ED NURSING NOTES ---
Clinical Report - Nurses [facility] [place] [address] 03/21/2017 13:03 Patient: VARUN URIBE TRIAGE Triage time 13:Mar 21 2017. Acuity: LEVEL 4. Chief Complaint: RECHECK OF WOUND. 13:17 03/21/17. Alert. No acute distress. SEPSIS SCREEN: Sepsis Screen. Negative (no infection suspected/documented). CHELSI COMA SCORE: Chelsi Coma Scale: 15- eyes open spontaneously (4); best verbal response- oriented x 4 (5); best motor response- obeys commands (6). --13:17 Qi Marin 13:17 03/21/17. BP: 125/64. HR: 80. RR: 17. O2 saturation: 96%. Temp: 98.2 F. Pain level now 6/10. --13:17 Qi Marin Acuity: LEVEL 5. 13:20 03/21/17. --13:20 Qi Marin. Weight: 81.6 kg stated. Height/Length: 71 inches Per Patient. BMI: 25.1. --13:16 Qi Marin. Medications Bactrim. Carbamazepine. Gabapentin. Keflex. Methadone. Triamcinolone Acetonide. --13:13 Qi Marin. Medication/allergy information source: the patient. --13:17 Qi Marin. Allergies None. --13:13 Qi Marin. History Arrived by private vehicle. Historian: patient. Unaccompanied. Primary physician (Figueroa). The patient has had redness, swelling and drainage from wound and has experienced pain. No fever. Previous treatment: Previously seen in this ED (on the ). PO antibiotic given in ED (Bactrim, Keflex). ( Pt was here for abscess that was drained in this facility on the . Pt states that it is continuing to drain and still has pain, but that the pain is not worse. 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 PAST MEDICAL HX: No history of diabetes mellitus, hypertension, heart disease or lung disease. Tetanus status: more than 5 years ago. SOCIAL HX: Light tobacco smoker (cigarette)- less than 1/2 a pack per day. No alcohol use or drug use. FALL RISK ASSESSMENT: Fall risk assessment completed. No fall risk identified. NUTRITIONAL RISK ASSESSMENT: The nutritional risk assessment revealed no deficiencies. FUNCTIONAL ASSESSMENT: Functional assessment: no impairments noted. LEARNING NEEDS ASSESSMENT: The learning needs assessment revealed no barriers. SKIN INTEGRITY ASSESSMENT: Skin integrity risk assessment completed. No skin integrity risk identified. --13:17 Qi Marin. PROBLEMS: Peripheral Vascular Disease. Mrsa. Arthritis. Cellulitis. Healing Abscess. Abscess. --13:13 Qi Marin. ADDITIONAL SURGERIES: Ankle surgery. Appendectomy. Right leg surgery. Toe amputation. --13:13 Qi Marin. Assessment The patient states feels the same. --13:17 Qi Marin. Interventions ID band on patient. --13:17 Qi Marin. PHYSICAL ASSESSMENT 13:03/21/17. Ambulatory to room. GENERAL / NEURO / PSYCH: Alert. Oriented X 4. Appears in no acute distress. EXTREMITIES: Extremity pulses are within normal limits. Capillary refill is less than 2 seconds in the extremities. Sensation intact in extremities. ROM of extremities within normal limits. SKIN: Warmth. Skin is warm and dry. Purulent drainage. Tenderness. Swelling. Erythema. --13:19 Qi Marin. NURSING PROGRESS NOTES 13:03/21/17. The plan of care for this patient has been created. Extremity elevated. Reassurance given. Two patient identifiers checked. Call light placed in reach. Side rails up x 1. Bed placed in lowest position. Brakes of bed on. Patient ready for evaluation- chart flagged and ED physician and FURRIER SHOP SUPERVISOR notified. --13:19 Qi Marin 14:30 03/21/2017 Two (2) unsuccessful IV access attempts including the right upper arm and antecubital space. Applied pressure dressing. --14:40 Qi Marin 14:51 03/21/2017 Site #1 started via IV in the right hand with an 22g angiocath; one attempt. Saline lock flushed with 10 mL saline. --14:51 Hannah Riggs R.N. 15:03 03/21/2017 Started 2 gm of Vancomycin IVPB in bag #1 200 mL; at 200 mL/hr over 1 hour(s) via site #1 via IV pump. Allergies verified and confirmed 5 rights. IV patency established. IV site checked: no pain, redness, or swelling. IV flushed thoroughly pre- and post-medication administration (IV rate confirmed with IV pump library.). --15:03 Qi Marin 15:03/21/17. BP: 121/73. HR: 73. RR: 16. O2 saturation: 94%. Pain level now 0/10. --15:03 Qi Marin 15:07 03/21/2017 TDAP IM 0.5 mL given. (Lot#: [id number], expiration date: 02/07/2019, Strainer Tender: [employer] pasteur). Given in the right deltoid. Allergies verified and confirmed 5 rights. Vaccine information statement provided to the patient. --15:07 Qi Marin 16:11 03/21/17. BP: 113/69. HR: 73. RR: 14. O2 saturation: 94%. Pain level now 5/10. --16:11 Qi Marin 17:03/21/17. BP: 109/77. HR: 72. RR: 16. O2 saturation: 96%. Temp: 98.3 F. Pain level now 6/10. --17:07 Qi Marin 16:15 03/21/17. Applied clean bulky dressing consisting of 4x4 gauze. Secured with kerlix. --18:37 Qi Marin 16:19 03/21/2017 Ibuprofen PO Tablets 800 mg given. Allergies verified and confirmed 5 rights. --16:19 Qi Marin 17:03/21/2017 Vancomycin IVPB Discontinued: bag #1 infused. Total amount infused: 400 mL. IV patency established. IV site checked: no pain, redness, or swelling. IV flushed thoroughly. --18:45 Qi Marin 17:25 03/21/2017 IV Saline Lock Drip IV Discontinued. Total amount infused: 0 mL. --18:45 Qi Marin 17:29 03/21/2017 Site #1 removed upon discharge. Catheter intact. Pressure dressing applied. --18:45 Qi Marin. DISPOSITION / DISCHARGE Departure time: Mar 21 2017. Condition at departure: improved. The goals identified in the patient's plan of care were met. No learning barriers present. Discharge instructions provided and reviewed with the patient. Reviewed warnings (Patient verbalized understanding of the importance of taking entire course of antibiotics. Patient verbalized awareness of warning s/sx listed in dc paperwork.). Reviewed medication(s) side effects, precautions, dosing and course information. Prescription(s) given to the patient (Bactrim). Treatments reviewed. Reviewed referral to a primary care physician for followup. Patient verbalized understanding. Written instructions provided in Wolof. The patient was discharged by the physician. He was discharged home and accompanied by family. He left the Emergency Department ambulatory and via private vehicle. Family member driving. FALL RISK ASSESSMENT: Fall risk assessment completed. No fall risk identified. --18:45 Qi Marin 17:29 03/21/17. BP: deferred. HR: deferred. RR: deferred. O2 saturation: deferred. Temp: deferred. Pain level now deferred. --18:45 Qi Marin. Locked/Released at 03/21/2017 18:46 by Qi Marin,
--- NOTE | 2017-03-21 17:20 | ED CLINICAL REPORT ---
Clinical Report - Physicians/Mid Levels [facility] [address] [place] [address] 03/21/2017 13:03 Patient: VARUN URIBE Time Seen: 13:13. Arrived- By private vehicle. Historian- patient. HISTORY OF PRESENT ILLNESS Chief Complaint: TENDER AREA. This started several weeks ago, "keeps coming back" and is still present. It is described as painful. It has been located on the left upper extremity. No cause has been identified. (Patient states he finished his antibiotics as directed, and things seemed to be better for a while, but the redness has recurred somewhat and also an area that seems to feel fluctuant to the patient. Patient denies fevers and states he otherwise feels well. He did get the packing taken out after his last I&D.). Similar symptoms previously: Recent medical care: The patient was seen recently at this facility. REVIEW OF SYSTEMS No fever, chills, sore throat, cough or difficulty breathing. No hoarseness, lump in throat, enlarged lymph nodes, headache or eye irritation. No chest pain, abdominal pain, nausea, diarrhea or difficulty with urination. No joint pain or vomiting. All systems otherwise negative, except as recorded above. PAST HISTORY Problems: Peripheral Vascular Disease. Mrsa. Hepatitis. Arthritis. Immunizations. Abscess. Additional Surgeries: Ankle surgery. Appendectomy. Right leg surgery. Toe amputation. Medications: Bactrim. Carbamazepine. Gabapentin. Keflex. Methadone. Triamcinolone Acetonide. Allergies: None. SOCIAL HISTORY Smoker- current status unknown. No alcohol use or drug use. ADDITIONAL NOTES The nursing notes have been reviewed. PHYSICAL EXAM Vital Signs: 03/21/2017 13:17 BP: 125/64. HR: 80. RR: 17. O2 saturation: 96%. Temp: 98.2 F. Have been reviewed. Appearance: Alert. Oriented X3. No acute distress. Eyes: Pupils equal, round and reactive to light. Conjunctivae and eyelids normal. ENT: Nose normal. Neck: Neck supple. CVS: Pulses normal. Strong peripheral pulses. Respiratory: No respiratory distress. Skin: Skin warm and dry. Medium area of erythema (Patient has heavy scarring on his left forearm, witha moderate sized area of erythema over the midportion of the forearm. There is an approximately 1 cm wound which is still in the process of healing, and appears to be the last I&D site. There is mild fluctuance around this area. No purulent drainage is expressible from the wound.). Extremities: (Normal, other than left forearm noted above.). Neuro: No motor deficit. No sensory deficit. (Patient is grossly oriented.). LABS, X-RAYS, AND EKG Pulse Oximetry: 03/21/2017 13:17 O2 saturation: 96%. (FIO2 - room air). Interpretation: normal. PROGRESS AND PROCEDURES Incision & Drainage of Abscess: The abscess is located in the left forearm. The risks of the procedure, benefits and alternatives were explained. Local anesthesia provided using 2% lidocaine. Skin cleansed with Betadine. The abscess was incised with a #11 surgical blade. No pus drained. Cavity was irrigated with saline and packed with gauze. Sample obtained for cultures and gram stain. A dressing was applied. ( A 3 cm incision was made extending the existing healing incision and crossing the fluctuant area. A small amount of serosanguineous fluid did drain from the wound, but even after sweeping the cavity with my finger to break up any potential loculations, no purulent matter drained from the area.). Course of Care: PT was restarted on abx in the ED, with vancomycin. He was given a prescription to take at home for further abx. Patient counseled in person regarding the patient's stable condition, diagnosis and need for follow-up. Concerns were addressed. Old medical records reviewed. Disposition: Discharged. Condition: stable. CLINICAL IMPRESSION Cellulitis of the left upper arm. Single superficial abscess to the left upper extremity with incision and drainage. INSTRUCTIONS (it is very important for you to be seen in the next 2 days for wound check and packing removal. If you cannot get an appointment with your primary care physician, you should return to the emergency department.). Warnings: GENERAL WARNINGS: Return or contact your physician immediately if your condition worsens or changes unexpectedly, if not improving as expected, or if other problems arise. Your Current Medications: CONTINUE TAKING THE FOLLOWING MEDICATIONS: Bactrim*. Carbamazepine*. Gabapentin*. Keflex*. Methadone*. Triamcinolone Acetonide*. Prescription Medications: Bactrim DS 800 mg / 160 mg: take 1 tablet orally every 12 hours for 10 days. No refill. Substitution is permissible. Follow-up: Follow up with your doctor in two days for wound check and packing removal. Understanding of the discharge instructions verbalized by patient. (Electronically signed by Magui Malcolm MD 03/31/2017 10:24)
--- NOTE | 2017-03-21 17:20 | ED ORDER SUMMARY ---
..... Patient: VARUN URIBE OrderSheet [facility] VisitID: [id number] [place] [address] 66y, M Registration Date/Time: 03/21/2017 ORDER SHEET Weight: 81.6 kg (stated) Allergies: None GENERAL ORDERS: - (RPR) (14:00 03/21/2017 Brennan GOSS) (Ack 14:04 KHoerner) (14:04 KHoerner) CBC w Diff Urgent (14:03/21/2017 Brennan GOSS) (Ack 14:03 KHoerner) (14:04 KHoerner) CMP Urgent (14:03/21/2017 Brennan GOSS) (Ack 14:03 KHoerner) (14:04 KHoerner) MEDICATION ORDERS: Tdap IM 0.5 mL (NOW, per protocol) (14:41 03/21/2017 ASchmuck per protocol) (Ack 14:48 ASchmuck) (15:07 ASchmuck) Ibuprofen PO 800 mg (NOW) (16:18 03/21/2017 ASchmuck verbal order read back to Brennan GOSS) (16:19 ASchmuck) IV FLUIDS: Vancomycin IV 2 gm/500 mL (NOW) (14:00 03/21/2017 Brennan GOSS) (Ack 14:48 ASchmuck) (15:03 ASchmuck) IV Saline Lock (14:03/21/2017 Brennan GOSS) (Ack 14:48 ASchmuck) (15:02 ASchmuck) ORDER SHEET NOTES: [Electronically signed by Qi Marin (18:46 03/21/2017)] [Electronically signed by Magui Malcolm MD (10:24 03/31/2017)] [Electronically locked/signed by Qi Marin (18:46 03/21/2017)]
--- NOTE | 2017-03-21 17:20 | ED ORDER SUMMARY ---
..... Patient: VARUN URIBE OrderSheet [facility] VisitID: [id number] [place] [address] 66y, M Registration Date/Time: 03/21/2017 ORDER SHEET Weight: 81.6 kg (stated) Allergies: None GENERAL ORDERS: - (RPR) (14:00 03/21/2017 Brennan GOSS) (Ack 14:04 KHoerner) (14:04 KHoerner) CBC w Diff Urgent (14:03/21/2017 Brennan GOSS) (Ack 14:03 KHoerner) (14:04 KHoerner) CMP Urgent (14:03/21/2017 Brennan GOSS) (Ack 14:03 KHoerner) (14:04 KHoerner) MEDICATION ORDERS: Tdap IM 0.5 mL (NOW, per protocol) (14:41 03/21/2017 ASchmuck per protocol) (Ack 14:48 ASchmuck) (15:07 ASchmuck) Ibuprofen PO 800 mg (NOW) (16:18 03/21/2017 ASchmuck verbal order read back to Brennan GOSS) (16:19 ASchmuck) IV FLUIDS: Vancomycin IV 2 gm/500 mL (NOW) (14:00 03/21/2017 Brennan GOSS) (Ack 14:48 ASchmuck) (15:03 ASchmuck) IV Saline Lock (14:03/21/2017 Brennan GSOS) (Ack 14:48 ASchmuck) (15:02 ASchmuck) ORDER SHEET NOTES: [Electronically signed by Qi Marin (18:46 03/21/2017)] [Electronically signed by Magui Malcolm MD (10:24 03/31/2017)] [Electronically locked/signed by Qi Marin (18:46 03/21/2017)]
--- NOTE | 2017-03-31 10:24 | ED DISCHARGE INSTRUCTIONS ---
Patient: VARUN URIBE General Instructions Formerly [facility] VisitID: [id number] [place] [address] 66y, M Registration Date/Time: 03/21/2017 Cellulitis of the left upper arm. Single superficial abscess to the left upper extremity with incision and drainage. INSTRUCTIONS (it is very important for you to be seen in the next 2 days for wound check and packing removal. If you cannot get an appointment with your primary care physician, you should return to the emergency department.). Warnings: GENERAL WARNINGS: Return or contact your physician immediately if your condition worsens or changes unexpectedly, if not improving as expected, or if other problems arise. Your Current Medications: CONTINUE TAKING THE FOLLOWING MEDICATIONS: Bactrim*. Carbamazepine*. Gabapentin*. Keflex*. Methadone*. Triamcinolone Acetonide*. Prescription Medications: Bactrim DS 800 mg / 160 mg: take 1 tablet orally every 12 hours for 10 days. No refill. Substitution is permissible. Follow-up: Follow up with your doctor in two days for wound check and packing removal. Understanding of the discharge instructions verbalized by patient. ADDITIONAL INFORMATION Cellulitis You have an infection of the skin known as cellulitis. This usually starts with a scrape, cut, insect bite, blister or other opening in the skin which becomes infected. This is a serious condition. It must be watched closely to be sure the infection is not spreading. With antibiotic treatment, the size of the red area will gradually shrink in size until the skin returns to normal. This will take 7-10 days. The red area should never increase in size once the antibiotic medicine has been started. Occasionally, an infection will be resistant to one antibiotic and another one will have to be used. Home Care: 1) Limit the use of the affected part, since excess movement can cause the infection to spread. 2) If the infection is on your leg, walk as little as possible during the first few days of the treatment. Keep your leg elevated while sitting. This will reduce swelling. 3) Take all of the antibiotic medicine exactly as directed until it is gone. Be careful not to miss any doses, especially during the first seven days. Follow Up with your doctor or this facility as directed. Check the infected area daily for the warning signs listed below. Get Prompt Medical Attention if any of the following occur: -- Spreading area of redness -- Increasing swelling or pain -- Appearance of pus or drainage -- Fever over 100.4 F (38.0 C) oral, or over 101.4 F (38.6 C) rectal, after two days on antibiotics Abscess [Incision & Drainage] An abscess (sometimes called a boil) occurs when bacteria get trapped under the skin and begin to grow. Pus forms inside the abscess as the body responds to the bacteria. An abscess can occur with an insect bite, ingrown hair, blocked oil gland, pimple, cyst, or puncture wound. Treatment of your abscess has required an incision to drain the pus. If the abscess pocket was large, a gauze packing may have been inserted. This will need to be removed and possibly replaced on your next visit. Antibiotics are not required in the treatment of a simple abscess, unless the infection is spreading into the skin around the wound (known as cellulitis). Healing of the wound will take about one to two weeks depending on the size of the abscess. Healthy tissue will grow from the bottom and sides of the opening until it seals over. Home Care: The wound may drain for the first two days. Cover the wound with a clean dry dressing. If the dressing becomes soaked with blood or pus, change it. If a gauze packing was placed inside the abscess cavity, you may be advised to remove it yourself. You may do this in the shower. Once the packing is removed, you should wash the area in the shower or bath 3 to 4 times a day, until the skin opening has closed. If you were prescribed antibiotics, take them as directed until they are all gone. You may use acetaminophen (Tylenol) or ibuprofen (Motrin, Advil) to control pain, unless another pain medicine was prescribed. [ NOTE: If you have liver disease or ever had a stomach ulcer, talk with your doctor before using these medicines.] Follow Up with your doctor as advised by our staff. If a gauze packing was inserted in your wound, it should be removed in 1-2 days. Check your wound every day for the signs of worsening infection listed below. Get Prompt Medical Attention if any of the following occur: Increasing redness or swelling Red streaks in the skin leading away from the wound Increasing local pain or swelling Continued pus draining from the wound two days after treatment Fever of 100.4F (38C) or higher, or as directed by your healthcare provider You have been given the following additional information: Cellulitis Abscess, Incision And Drainage (Electronically signed by Magui Malcolm MD 03/31/2017 10:24)
--- NOTE | 2017-03-31 10:24 | ED MED RECONCILIATION SUMMARY ---
Patient: VARUN URIBE Medication Reconciliation Report [facility] VisitID: [id number] [place] [address] 66y, M Registration Date/Time: 03/21/2017 Weight: 81.6 kg Height/Length: 71 in. BMI: 25.1 ALLERGIES: None The patient's Home Medications are listed below: CONTINUE TAKING THE FOLLOWING MEDICATIONS: Bactrim Carbamazepine Gabapentin Keflex Methadone Triamcinolone Acetonide The source(s) of the original Home Medication information: patient The following Medications were given to the patient in the Emergency Department: Vancomycin [IVPB] IVPB bolus 0, then 2 gm 200 mL/hr, administered: 03/21/2017 3:03:00 PM TDAP [IM] IM 0.5 mL, administered: 03/21/2017 3:07:00 PM Ibuprofen [PO] PO 800 mg, administered: 03/21/2017 4:19:00 PM The following Medications were prescribed to the patient: Bactrim DS 800 mg / 160 mg: take 1 tablet orally every 12 hours for 10 days. No refill. Substitution is permissible. -- Magui Malcolm MD
--- NOTE | 2017-03-31 10:24 | ED MAR SUMMARY ---
..... Medication Administration Record [facility] [address] [place] [address] Patient: VARUN URIBE Visit ID: [id number] 66y, M Weight: 81.6 kg Height/Length: 71 in BMI: 25.1 ALLERGIES: None Start 15:03/21/2017 Qi Marin,, Stop 17:03 03/21/2017 Qi Marin, Medication Administered: VANCOMYCIN [IVPB], Dose: 2 gm IVPB over 1 hour(s), Rate: 200 mL/hr, Dispensed: 200 mL bag, Site: #1 right hand. Medication Ordered: Vancomycin IV 2 gm/500 mL (NOW). Given 15:07 03/21/2017 Qi Marin, Medication Administered: TDAP [IM], Dose: 0.5 mL IM. Medication Ordered: Tdap IM 0.5 mL (NOW, per protocol). Given 16:19 03/21/2017 Qi Marin, Medication Administered: IBUPROFEN [PO], Dose: 800 mg Tablets PO. Medication Ordered: Ibuprofen PO 800 mg (NOW).
--- NOTE | 2017-03-31 10:24 | ED MAR SUMMARY ---
..... Medication Administration Record [facility] [address] [place] [address] Patient: VARUN URIBE Visit ID: [id number] 66y, M Weight: 81.6 kg Height/Length: 71 in BMI: 25.1 ALLERGIES: None Start 15:03/21/2017 Qi Marin,, Stop 17:03 03/21/2017 Qi Marin, Medication Administered: VANCOMYCIN [IVPB], Dose: 2 gm IVPB over 1 hour(s), Rate: 200 mL/hr, Dispensed: 200 mL bag, Site: #1 right hand. Medication Ordered: Vancomycin IV 2 gm/500 mL (NOW). Given 15:07 03/21/2017 Qi Marin, Medication Administered: TDAP [IM], Dose: 0.5 mL IM. Medication Ordered: Tdap IM 0.5 mL (NOW, per protocol). Given 16:19 03/21/2017 Qi Marin, Medication Administered: IBUPROFEN [PO], Dose: 800 mg Tablets PO. Medication Ordered: Ibuprofen PO 800 mg (NOW).
--- NOTE | 2017-03-31 10:24 | ED MED RECONCILIATION SUMMARY ---
Patient: VARUN URIBE Medication Reconciliation Report [facility] VisitID: [id number] [place] [address] 66y, M Registration Date/Time: 03/21/2017 Weight: 81.6 kg Height/Length: 71 in. BMI: 25.1 ALLERGIES: None The patient's Home Medications are listed below: CONTINUE TAKING THE FOLLOWING MEDICATIONS: Bactrim Carbamazepine Gabapentin Keflex Methadone Triamcinolone Acetonide The source(s) of the original Home Medication information: patient The following Medications were given to the patient in the Emergency Department: Vancomycin [IVPB] IVPB bolus 0, then 2 gm 200 mL/hr, administered: 03/21/2017 3:03:00 PM TDAP [IM] IM 0.5 mL, administered: 03/21/2017 3:07:00 PM Ibuprofen [PO] PO 800 mg, administered: 03/21/2017 4:19:00 PM The following Medications were prescribed to the patient: Bactrim DS 800 mg / 160 mg: take 1 tablet orally every 12 hours for 10 days. No refill. Substitution is permissible. -- Magui Malcolm MD
== END 2017-03-21 17:28 | disposition home or self-care (01) ==
LOC: ED SRH 13:01
DX: L03.114 Cellulitis of left upper limb (principal); L02.414 Cutaneous abscess of left upper limb; Z79.899 Other long term (current) drug therapy; Z23 Encounter for immunization; Z72.0 Tobacco use